=== PATIENT | male | born 1990 | race Hispanic/Latino ===

== ENCOUNTER 2019-05-16 02:55 | Emergency (ER) | payer OTHER, SELFPAY ==
[2019-05-16] MEDS ORDERED: Ibuprofen 800 MG TAB ONE (03:09)
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
== END 2019-05-16 04:50 | disposition home or self-care (01) ==
LOC: ERS 02:55
DX: S32.029A Unspecified fracture of second lumbar vertebra, initial encounter for closed fracture (principal); V89.2XXA Person injured in unspecified motor-vehicle accident, traffic, initial encounter
CPT/HCPCS: 72100; 72131

== ENCOUNTER 2021-01-07 05:40 | Emergency (ER) | payer OTHER ==
[2021-01-07] MEDS ORDERED: Boostrix 0.5 ML (Tdap) VIAL ONE ×2 (09:20→10:48)
[2021-01-07] MEDS ORDERED: HYDROcodone/Acetaminophen 10/325 mg Tablet ONE (09:20)
[2021-01-07] MEDS ORDERED: Lidocaine 1% w/Epinephrine 1:100K 20 ML VIAL ONE (09:30)
[2021-01-07] MEDS ORDERED: Bacitracin 1 PK ONE (10:39)
== END 2021-01-07 11:30 | disposition home or self-care (01) ==
LOC: ERS 05:40
DX: S51.012A Laceration without foreign body of left elbow, initial encounter (principal); S80.811A Abrasion, right lower leg, initial encounter; F17.210 Nicotine dependence, cigarettes, uncomplicated; W19.XXXA Unspecified fall, initial encounter; Y93.01 Activity, walking, marching and hiking; Y92.69 Other specified industrial and construction area as the place of occurrence of the external cause; Y99.0 Civilian activity done for income or pay; Z23 Encounter for immunization
CPT/HCPCS: 12002; 90471; 90715